=== PATIENT | female | born 2000 | race Caucasian/White ===

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

== ENCOUNTER 2024-06-26 16:56 | Emergency (ER) | payer SELFPAY ==
[2024-06-26 16:56] VITALS: BP 139/83; PULSE 90; RESP 18; TEMP 36.6; O2SAT 98; BMI 24.3
--- NOTE | 2024-06-26 17:27 | EDS_ITS ---
HPI History of Present Illness HPI Narrative: Patient presents with right ankle pain that has been getting worse over the past 3 days. Patient is unsure how she injured her ankle. Patient states it is constant aching but sharp at times. Patient states it is worse with ambulation. Patient states it is mainly over the posterior aspect of the right ankle. Patient denies any paresthesias or weakness. Patient denies any coolness or cyanosis of her foot. Chief Complaint: Lower Extremity Injury Informant: patient Onset/Context/Timing Onset: Days (3 days ago) Context: Sudden Onset Timing: Continuous Quality of Pain: Sharp (At times) and Aching (Constant) Location: Posterior right ankle Worsened by: Ambulation Relieved by: Nothing Associated Symptoms Associated Symptoms: Negative for Parasthesia, Weakness or Loss of Funtion [facility] Medical History (Updated 06/26/24 @ 18:[address] Pranav Vargas DO) Sciatica Home Medications ?Medication ?Instructions ?Recorded ?Last Taken ?Type nitrofurantoin 100 mg PO Q12 #10 CAPSULES 0 08/07/21 Unknown Rx monohydrate/macrocrystals 100 mg capsule ibuprofen 600 mg tablet 600 mg PO Q8H PRN PRN pain # 20 06/26/24 Unknown Rx TABLETS Allergy/AdvReac Type Severity Reaction Status Date / Time No Known Allergies Allergy Verified 06/26/24 16:56 Surgical History no surgical history no surgical history Social History household members: none housing: apartment Smoking Status: Never smoker alcohol intake: never substance use type: does not use ROS ROS ED Constitutional Constitutional ED: Denies chills or fever(s) Eyes Eyes: Denies blurry vision or change in vision ENT ENT ED: Denies rhinorrhea or sore throat Cardiovascular Cardiovascular: Denies chest pain or palpitations Respiratory/Chest Respiratory/Chest: Denies cough or dyspnea Gastrointestinal Gastrointestinal: Denies nausea or vomiting Genitourinary Genitourinary ED: Denies dysuria or hematuria Musculoskeletal Musculoskeletal: Reports back pain and neck pain Integumentary Denies abscess or rash Neurologic Neurologic: Reports headache(s); Denies weakness Allergic/Immunologic Allergic/Immunologic ED: Denies mouth swelling or urticaria EXAM Physical Exam Const Vital Signs: 06/26/24 16:56 05/19/25 18:04 Temperature 98 F 98 F Temperature Source Temporal Pulse Rate 90 90 Respiratory Rate 18 18 Blood Pressure 139/83 H 139/83 H Blood Pressure Mean 101 101 Pulse Ox 98 98 Oxygen Delivery Method Room Air Positive well nourished and well developed General Appearance ED: well developed and NAD HEENT Reports moist mucous membranes Neck full ROM and supple Extremity Extremity Narrative: There is tenderness over the posterior aspect of the right ankle. There is slight edema. There is no ecchymosis. There is no bony crepitance or step-off. There is good range of motion. Cosme test was negative. Pedal pulses are equal bilaterally. Sensation was intact to light touch all digits. Capillary refills less than 2 seconds in all digits. Neuro oriented x3, CN's II-XII intact bilaterally, moves all extremities and no sensory deficits noted Sensorium / Orientation: alert Motor Exam: strength 5/5 throughout Psych mental status grossly normal MDM MDM MDM Narrative Medical decision making narrative: Differential diagnosis includes Achilles tendinitis, ankle sprain, contusion, and occult fracture. X-rays of the right ankle will be obtained to assess for occult fracture. Radiography Diagnostic Testing: Clinical Impression(s) from Imaging Studies Ankle X-Ray 06/26/24 17:35 IMPRESSION: No acute osseous abnormality of the right ankle. Reading Location: [id number] X-rays of the right ankle were obtained. There are 3 views. On my independent interpretation, there is no acute fracture. There is no soft tissue swelling. Radiologist also interpreted the x-rays and agrees. Treatment and Re-Evaluation Narrative: Patient was given a dose of ibuprofen here. Patient was advised of her findings. Patient was given a walking boot. Patient was instructed to ice and elevate the right ankle. Patient was given a prescription for ibuprofen. Patient was instructed to follow-up with her primary care physician in 5 to 7 days. Patient understood and was agreeable with the plan. All questions were answered. Discharge Plan Triage Chief Complaint: Lower Extremity Injury ED Provider: Pranav Vargas Dx/Rx/DC Orders Clinical Impression: Achilles tendinitis of right lower extremity, Nicotine vapor product user Instructions: ED Tendonitis Prescriptions: New ibuprofen 600 mg tablet 600 mg PO Q8H PRN PRN (Reason: pain) Qty: 20 0RF No Action nitrofurantoin monohyd/m-cryst [nitrofurantoin monohyd/m-cryst] 100 mg capsule 100 mg PO Q12 Qty: 10 0RF Stand Alone Forms: Work Status Form Primary Care Provider: Care Physician,No Primary Referrals: Nereida Quinn MD [Med Staff - [facility]] - 5-7 Days Care Physician,No Primary [Primary Care Provider] - Print Language: Peruvian Disposition Disposition: Home, Self Care
--- NOTE | 2024-06-26 17:35 | RAD_ITS ---
PROCEDURE: ANKLE MIN 3 VIEWS 06/26/2024 REASON FOR EXAM: INJURY/PAIN TECHNIQUE: 3 views of the right ankle COMPARISON: Right foot radiographs 07/14/2021 FINDINGS: No displaced fracture or traumatic malalignment. Bone mineral density is subjectively normal. No significant ankle joint effusion. Soft tissues are unremarkable. RAD/Ankle min 3 Views IMPRESSION: No acute osseous abnormality of the right ankle. Reading Location: [facility]
[2024-06-26] MEDS: Ibuprofen 600 MG Tablet PO (17:38)
[2024-06-26 18:04] VITALS: BP 139/83; PULSE 90; RESP 18; TEMP 36.6; O2SAT 98
== END 2024-06-26 18:17 | disposition home or self-care (01) ==
PROVIDERS: Emergency Provider Emergency Medicine; Visit Provider Emergency Medicine
DX: M76.61 Achilles tendinitis, right leg (principal); R51.9 Headache, unspecified; F17.290 Nicotine dependence, other tobacco product, uncomplicated
CPT/HCPCS: 73610; 99283